=== PATIENT | female | born 1980 | race Caucasian/White ===

== ENCOUNTER 2023-08-19 20:50 | Emergency (ER) | payer BC ==
[~2023-08-19] VITALS: Ht 170.2 cm; Wt 59.1 kg
[~2023-08-19 20:50] MED LIST: MOTRIN 600600 MG/TAB PO; PERCOCET 325 MG1 TA2 PO; PRENATAL1 TA1 PO
[2023-08-19 21:05] VITALS: TEMP 98.4
[2023-08-19] MEDS ORDERED: NS 1,000 ML IV ONE (21:30)
[2023-08-19] MEDS ORDERED: Ketorolac 30 MG/ML VIAL IV ONE (21:30)
[2023-08-19 21:44] LABS: HEMOGLOBIN 11.1 g/dl (12.5-16.0); MEAN CELL VOLUME 91 fl (80.0-100.0); MEAN CORPUSCULAR HEMOGLOBIN 29 pg (27-31); MEAN CORPUSCULAR HGB CONC 32 g/dl (33.0-37.0); MEAN PLATELET VOLUME 12.3 fl (7.4-10.4); PLATELET COUNT 189 K/mm3 (130-400); RED BLOOD COUNT 3.89 M/mm3 (4.10-5.30); REDCELL DISTRIBUTION WIDTH-CV 14.1 % (11.5-14.5)
[2023-08-19 21:46] LABS: HEMATOCRIT 35.2 % (37.0-47.0)
[2023-08-19 21:57] LABS: COLLECTION METHOD CLEAN CATCH; URINE APPEARANCE TURBID (CLEAR/HAZY); URINE COLOR RED (YELLOW)
[2023-08-19 21:58] LABS: PH 7.5 (5.0-8.5); URINE BLOOD 3+ (NEGATIVE); URINE GLUCOSE Negative (NEGATIVE); URINE KETONE Negative (NEGATIVE); URINE NITRATE Negative (NEGATIVE); URINE PROTEIN(semi-quant) 3+ (NEGATIVE); URINE UROBILINOGEN 0.2 E.U/dL (0.2-1.0)
[2023-08-19 22:02] LABS: SQUAMOUS EPITHELIAL 0-2 /hpf (0-10); URINE BACTERIA RARE /hpf (NONE SEEN); URINE RBC >50 /hpf (0-2)
[2023-08-19] MEDS ORDERED: Iohexol 300 - 100 ML VIAL IV ONE (22:19)
[2023-08-19] MEDS ORDERED: NS 60 ML IV ONE (22:21)
[2023-08-19 22:38] LABS: CALCIUM 9.5 mg/dL (8.4-10.2); CREATININE, serum 0.89 mg/dL (0.57-1.11); POTASSIUM 3.6 mmol/L (3.5-4.5)
[2023-08-19] MEDS ORDERED: PYRIDIUM200 M1 PO (23:00)
[2023-08-19] MEDS ORDERED: TORADOL 10MG TA10 MG PO (23:00)
[2023-08-19] MEDS ORDERED: BACTRIM DS 8001 TAB PO (23:00)
[2023-08-19] MEDS ORDERED: Sulfamethoxazole/Trimethoprim 800-160 MG TAB PO ONE ×2 (23:00→23:15)
[2023-08-19 23:02] VITALS: BP 109/72; PULSE 74
== END 2023-08-19 23:14 | disposition home or self-care (01) ==
LOC: COL.ER 20:50
PROVIDERS: Emergency Medicine
DX: N30.90 Cystitis, unspecified without hematuria (principal)
CPT/HCPCS: J7030; Q9967